=== PATIENT | male | born 1975 | race Caucasian/White ===

== ENCOUNTER 2022-10-02 22:55 | Inpatient (IN) | payer OTHER ==
[2022-10-02 23:26] VITALS: BMI 25.8
[2022-10-03] MEDS ORDERED: METHOCARBAMOL 500 MG TABLET PO PRN (02:57)
[2022-10-03] MEDS ORDERED: NICOTINE 10 MG CARTRIDGE (INHALER) IH PRN (02:57)
[2022-10-03] MEDS ORDERED: IBUPROFEN 600 MG TABLET (FP) PO PRN (02:57)
[2022-10-03] MEDS ORDERED: guaiFENesin 600 MG TABLET.ER (FP) PO PRN (02:57)
[2022-10-03] MEDS ORDERED: LOPERAMIDE HCL 2 MG CAPSULE PO PRN (02:57)
[2022-10-03] MEDS ORDERED: IBUPROFEN 400 MG TABLET (FP) PO PRN (02:57)
[2022-10-03] MEDS ORDERED: DICYCLOMINE HCL 10 MG CAPSULE PO PRN (02:57)
[2022-10-03] MEDS ORDERED: ONDANSETRON *ODT* 4 MG TABLET SL PRN (02:57)
[2022-10-03] MEDS ORDERED: MAG HYDROX/AL HYDROX/SIMETH 30 ML UNIT-DOSE CUP PO PRN (02:57)
[2022-10-03] MEDS ORDERED: MAGNESIUM HYDROX 2400MG/30ML ORAL SUSPENSION 30 ML CUP PO PRN (02:57)
[2022-10-03] MEDS ORDERED: BENZONATATE 200 MG CAPSULE PO PRN (02:57)
[2022-10-03] MEDS ORDERED: POLYETHYLENE GLYCOL (HEALTHYLAX) 3350 17 GM PACKET PO PRN (02:57)
[2022-10-03] MEDS ORDERED: NALOXONE HCL 0.4 MG/ML VIAL IM PRN (02:57)
[2022-10-03] MEDS ORDERED: NALOXONE HCL (KLOXXADO) 8 MG SPRAY NS PRN (02:57)
[2022-10-03] MEDS ORDERED: BISMUTH SUBSALICYLATE 524 MG/30 ML PO PRN (02:57)
[2022-10-03] MEDS ORDERED: ACETAMINOPHEN 325 MG TABLET (FP) PO PRN (02:57)
[2022-10-03] MEDS ORDERED: BENZOCAINE/MENTHOL (CHLORASEPTIC ) LOZENGE MM PRN (02:57)
[2022-10-03] MEDS ORDERED: cloNIDine HCL 0.1 MG TABLET PO PRN (03:01)
[2022-10-03] MEDS ORDERED: NICOTINE POLACRILEX 2 MG GUM BC PRN (03:05)
[2022-10-03] MEDS ORDERED: methaDONE HCL 10 MG TABLET (FOR DETOX USE ONLY) PO ONE (04:30)
[2022-10-03] MEDS ORDERED: methaDONE HCL 10 MG TABLET (FOR DETOX USE ONLY) ONE (04:39)
[2022-10-03] MEDS: SULFAMETHOXAZOLE/TRIMETHOPRIM 800MG/160MG D.S. TABLET PO SCH ×2 (05:01→17:48)
[2022-10-03] MEDS: CEPHALEXIN MONOHYDRATE 500 MG CAPSULE (UD) PO SCH ×4 (05:01→23:10)
[2022-10-03] MEDS: PRENATAL VITAMINS W/ FOLIC ACID TABLET (FP) PO SCH (10:24)
[2022-10-03] MEDS: NICOTINE 21 MG/24 HOURS TOPICAL PATCH TD SCH (10:25)
[2022-10-03 20:58] VITALS: RESP 18
[2022-10-03] MEDS ORDERED: MELATONIN 5 MG TABLETS PO SCH (22:00)
[2022-10-03] MEDS ORDERED: THIAMINE HCL 100 MG TABLET (FP) PO SCH (22:00)
[2022-10-04] MEDS: SULFAMETHOXAZOLE/TRIMETHOPRIM 800MG/160MG D.S. TABLET PO SCH (05:22)
[2022-10-04] MEDS: CEPHALEXIN MONOHYDRATE 500 MG CAPSULE (UD) PO SCH ×2 (05:22→11:04)
[2022-10-04 09:22] VITALS: BP 126/71; PULSE 89; TEMP 97.7
[2022-10-04] MEDS: NICOTINE 21 MG/24 HOURS TOPICAL PATCH TD SCH (10:19)
[2022-10-04] MEDS: PRENATAL VITAMINS W/ FOLIC ACID TABLET (FP) PO SCH (10:19)
[2022-10-04 11:22] LABS: HEMATOCRIT 42.3 % (35.4-49); HEMOGLOBIN 13.8 GM/dL (11.7-16.9); MCH 27.7 pg (25.7-33.7); MCHC 32.6 g/dl (32.0-35.9); MEAN CELL VOLUME 84.9 fl (80-96); MEAN PLT VOLUME 8.8 fl (7.5-11.1); PLATELET COUNT 305 10^3/uL (134-434); RBC 4.98 M/mm3 (4.00-5.60); RDW 13.8 % (11.9-15.9); WHITE BLOOD COUNT 8.6 K/mm3 (4.0-10.0)
[2022-10-04 11:32] LABS: CHLORIDE 92 mmol/L (98-107); POTASSIUM 4.6 mmol/L (3.5-5.1); SODIUM 130 mmol/L (136-145)
[2022-10-04 11:43] LABS: ALBUMIN 3.6 g/dl (3.4-5.0); ANION GAP 14 MMOL/L (8-16); BLOOD UREA NITROGEN 7.7 mg/dL (7-18); CO2 25 mmol/L (21-32)
[2022-10-04 11:46] LABS: SGOT/AST 8 U/L (15-37); SGPT/ALT 16 U/L (13-61)
[2022-10-04 11:48] LABS: BILIRUBIN,TOTAL 0.6 mg/dL (0.2-1); TOT PROT 7.5 g/dl (6.4-8.2)
[2022-10-04 11:49] LABS: ALK PHOS 106 U/L (45-117)
[2022-10-04 11:51] LABS: GLUCOSE,RANDOM 453 mg/dL (74-106)
[2022-10-04 12:51] LABS: HIV INTERPRETATION NEGATIVE (NEGATIVE)
[2022-10-05] MEDS ORDERED: methaDONE HCL 10 MG TABLET (FOR DETOX USE ONLY) PO ONE (10:00)
[2022-10-07] MEDS ORDERED: methaDONE HCL 10 MG TABLET (FOR DETOX USE ONLY) PO ONE (10:00)
== END 2022-10-04 10:30 | disposition left against medical advice (07) | DRG 770 ==
LOC: YASAS 22:55 → Y6N 10-03 04:11
PROVIDERS: ADMIT Allergy & Immunology; ATTEND Surgery
PROC: HZ2ZZZZ Detoxification Services for Substance Abuse Treatment (ICD-10-PCS; principal; 2022-10-03)
DX: F11.23 Opioid dependence with withdrawal (principal); F14.20 Cocaine dependence, uncomplicated; F12.20 Cannabis dependence, uncomplicated; F17.210 Nicotine dependence, cigarettes, uncomplicated; L03.113 Cellulitis of right upper limb
CPT/HCPCS: 36415; 80053; 85027; 86780; 87389; 87635; 93005; 93010

== ENCOUNTER 2022-12-28 16:57 | Inpatient (IN) | payer OTHER ==
[2022-12-28 19:26] VITALS: BMI 21.4
[2022-12-28] MEDS ORDERED: BISMUTH SUBSALICYLATE 524 MG/30 ML PO PRN (22:21)
[2022-12-28] MEDS ORDERED: NALOXONE HCL 0.4 MG/ML VIAL IM PRN (22:21)
[2022-12-28] MEDS ORDERED: guaiFENesin 600 MG TABLET.ER (FP) PO PRN (22:21)
[2022-12-28] MEDS ORDERED: IBUPROFEN 600 MG TABLET (FP) PO PRN (22:21)
[2022-12-28] MEDS ORDERED: MAGNESIUM HYDROX 2400MG/30ML ORAL SUSPENSION 30 ML CUP PO PRN (22:21)
[2022-12-28] MEDS ORDERED: ONDANSETRON *ODT* 4 MG TABLET SL PRN (22:21)
[2022-12-28] MEDS ORDERED: IBUPROFEN 400 MG TABLET (FP) PO PRN (22:21)
[2022-12-28] MEDS ORDERED: LOPERAMIDE HCL 2 MG CAPSULE PO PRN (22:21)
[2022-12-28] MEDS ORDERED: DICYCLOMINE HCL 10 MG CAPSULE PO PRN (22:21)
[2022-12-28] MEDS ORDERED: BENZONATATE 200 MG CAPSULE PO PRN (22:21)
[2022-12-28] MEDS ORDERED: MAG HYDROX/AL HYDROX/SIMETH 30 ML UNIT-DOSE CUP PO PRN (22:21)
[2022-12-28] MEDS ORDERED: NALOXONE HCL (KLOXXADO) 8 MG SPRAY NS PRN (22:21)
[2022-12-28] MEDS ORDERED: POLYETHYLENE GLYCOL (HEALTHYLAX) 3350 17 GM PACKET PO PRN (22:21)
[2022-12-28] MEDS ORDERED: BENZOCAINE/MENTHOL (CHLORASEPTIC ) LOZENGE MM PRN (22:21)
[2022-12-28] MEDS ORDERED: ACETAMINOPHEN 325 MG TABLET (FP) PO PRN (22:21)
[2022-12-28] MEDS ORDERED: hydrOXYzine PAMOATE 25 MG CAPSULE (FP) PO PRN (22:21)
[2022-12-28] MEDS ORDERED: METHOCARBAMOL 500 MG TABLET PO PRN (22:21)
[2022-12-28] MEDS ORDERED: cloNIDine HCL 0.1 MG TABLET PO PRN (22:23)
[2022-12-28] MEDS ORDERED: methaDONE HCL 10 MG TABLET (FOR DETOX USE ONLY) PO ONE (22:23)
[2022-12-29] MEDS ORDERED: methaDONE HCL 10 MG TABLET (FOR DETOX USE ONLY) PO ONE ×2 (02:45→12:15)
[2022-12-29 12:01] LABS: HEMATOCRIT 41.1 % (35.4-49); HEMOGLOBIN 13.3 GM/dL (11.7-16.9); MCH 27.3 pg (25.7-33.7); MCHC 32.3 g/dl (32.0-35.9); MEAN CELL VOLUME 84.7 fl (80-96); MEAN PLT VOLUME 8.8 fl (7.5-11.1); PLATELET COUNT 352 10^3/uL (134-434); RBC 4.85 M/mm3 (4.00-5.60); RDW 14.3 % (11.9-15.9); WHITE BLOOD COUNT 9.8 K/mm3 (4.0-10.0)
[2022-12-29] MEDS: PRENATAL VITAMINS W/ FOLIC ACID TABLET (FP) PO SCH (12:05)
[2022-12-29 12:39] LABS: CHLORIDE 93 mmol/L (98-107); POTASSIUM 3.8 mmol/L (3.5-5.1); SODIUM 133 mmol/L (136-145)
[2022-12-29 13:18] LABS: CALCIUM 8.6 mg/dL (8.5-10.1)
[2022-12-29 13:19] LABS: ALBUMIN 3.3 g/dl (3.4-5.0); ANION GAP 12 MMOL/L (8-16); CO2 28 mmol/L (21-32)
[2022-12-29 13:22] LABS: CREATININE 0.7 mg/dL (0.55-1.3); SGOT/AST 11 U/L (15-37)
[2022-12-29 13:24] LABS: BILIRUBIN,TOTAL 0.8 mg/dL (0.2-1); TOT PROT 6.4 g/dl (6.4-8.2)
[2022-12-29 13:25] LABS: ALK PHOS 95 U/L (45-117)
[2022-12-29 13:30] LABS: BLOOD UREA NITROGEN 7.1 mg/dL (7-18)
[2022-12-29 13:37] LABS: GLUCOSE,RANDOM 423 mg/dL (74-106); SGPT/ALT 21 U/L (13-61)
[2022-12-29] MEDS ORDERED: INSULIN (NOVOLOG) ASPART 100 UNITS/ML 10ML VIAL SQ ONE (15:00)
[2022-12-29] MEDS ORDERED: INSULIN (NOVOLOG) ASPART 100 UNITS/ML 10ML VIAL ONE ×2 (17:23→22:46)
[2022-12-29] MEDS: INSULIN SLIDING SCALE (NOVOLOG) 1 VIAL SQ SCH ×2 (17:29→22:43)
[2022-12-29 21:34] VITALS: RESP 18
[2022-12-29] MEDS ORDERED: MELATONIN 5 MG TABLETS PO SCH (22:00)
[2022-12-29] MEDS ORDERED: THIAMINE HCL 100 MG TABLET (FP) PO SCH (22:00)
[2022-12-30] MEDS: INSULIN SLIDING SCALE (NOVOLOG) 1 VIAL SQ SCH ×2 (06:13→11:57)
[2022-12-30 09:10] VITALS: BP 140/81; PULSE 95; TEMP 97.5
[2022-12-30] MEDS: PRENATAL VITAMINS W/ FOLIC ACID TABLET (FP) PO SCH (10:17)
[2022-12-31] MEDS ORDERED: methaDONE HCL 10 MG TABLET (FOR DETOX USE ONLY) PO ONE (10:00)
[2023-01-02] MEDS ORDERED: methaDONE HCL 10 MG TABLET (FOR DETOX USE ONLY) PO ONE (10:00)
== END 2022-12-30 12:10 | disposition left against medical advice (07) | DRG 770 ==
LOC: YASAS 16:57 → Y6N 12-29 02:05
PROVIDERS: ADMIT Allergy & Immunology; ATTEND Surgery
PROC: HZ2ZZZZ Detoxification Services for Substance Abuse Treatment (ICD-10-PCS; principal; 2022-12-29)
DX: F11.23 Opioid dependence with withdrawal (principal); F14.20 Cocaine dependence, uncomplicated; F10.20 Alcohol dependence, uncomplicated; F17.210 Nicotine dependence, cigarettes, uncomplicated
CPT/HCPCS: 36415; 80053; 82962; 83036; 85027; 86780; 87635; 87811